=== PATIENT | female | born 1990 | race African-American/Black ===

== ENCOUNTER → 2022-12-10 14:46 | Outpatient (CLI) | payer OTHER, SELFPAY ==
--- NOTE | 2022-12-10 14:53 | DI.US.S_ITS ---
PROCEDURE: US OB <= 14 WEEKS FETUS INDICATIONS: dating and viability OUTSIDE/PRIOR DATING DATA: Last menstrual period (LMP): 07/17/2023. LMP-based estimated date of delivery (CAROLYN): 07/17/2023. First dating scan (date and location): 12/10/2022 at . Estimated date of delivery (CAROLYN) from first dating scan: 06/25/2023. TECHNIQUE: Real-time scanning was performed of the fetus and maternal pelvic organs, with image documentation. Endovaginal scanning was also performed to better visualize the fetus and maternal ovaries. COMPARISON: None. FINDINGS: Embryo: There is a single living IUP. The estimated gestational age is 11 weeks 6 days based on the current ultrasound. Heart rate: 178 Maternal organs: There are multiple uterine fibroids. The largest fibroid is in the lower uterine segment on the left measuring 4.4 x 6.4 x 5.6 cm. Right ovary is not visualized. There is a corpus luteum in left ovary. IMPRESSION: 1. A single living intrauterine gestation with an estimated gestational age of 11 weeks 6 days corresponding to ultrasound CAROLYN 06/25/2023. 2. Multiple uterine fibroids with the largest measuring 4.4 x 6.5 x 5.6 cm in the lower uterine segment on the left. We strive to produce accurate, complete, and clear reports of imaging services. To assist us in improving patient care, this report was composed using standard report templates and voice recognition software. Therefore, it may contain abnormal punctuation, insertions and/or omissions. Occasional wrong-word or sound-alike substitutions may occur. Though we review the report and make efforts to correct it, we do recommend that the report be read carefully in proper context to recognize any text inaccuracies. Dictated by: Armando Camp M.D. on 12/11/2022 at 12:41 Approved by: Armando Camp M.D. on 12/11/2022 at 12:54
[2022-12-10 15:29] LABS: Add Manual Diff / Slide Review NO; Basophils Absolute Auto 0 /uL (0-100); Basophils Percent Auto 0.3 % (0-2); Eosinophils Absolute Auto 100 /uL (0-450); Eosinophils Percent Auto 0.9 % (2-4); Hematocrit 32.6 % (36-46); Hemoglobin 11.1 g/dL (12.0-16.0); Lymphocytes Absolute Auto 1600 /uL (1100-4500); Mean Corpuscular HGB Conc 34.1 % (30-36); Mean Corpuscular Hemoglobin 30.7 PG (26-34); Mean Corpuscular Volume 89.9 fL (80-100); Monocytes Absolute Auto 600 /uL (0-900); Monocytes Percent Auto 9.7 % (3-14); Neutrophils Absolute Auto 4200 /uL (1500-7000); Neutrophils Percent Auto 64.1 % (50-75); Platelet Count 175 X10^3/uL (150-400); Red Blood Cell Count 3.63 X10^6/uL (4.0-5.2); Red Cell Distribution Width 12.8 % (11.6-14.8); White Blood Cell Count 6.5 X10^3/uL (4.5-11.0)
[2022-12-10 16:36] LABS: Hepatitis B Surface Antigen NEGATIVE s/c (NEGATIVE); Rubella Antibody IgG 64.3 IU/mL (>15)
[2022-12-10 16:42] LABS: HIV 1 & 2 Ab/Ag 4th Gen Combo NEGATIVE (NEGATIVE); Hep C Virus Ab w/Reflex Quant NEGATIVE s/c (NEGATIVE)
[2022-12-11 11:19] LABS: Varicella IgG Antibody 150 index (Immune >165)
[2022-12-14 17:06] LABS: RPR Screen Non Reactive (Non Reactive)
== END ==
PROVIDERS: Referring Provider Obstetrics & Gynecology; Visit Provider Obstetrics & Gynecology
DX: O34.11 Maternal care for benign tumor of corpus uteri, first trimester (principal); D25.9 Leiomyoma of uterus, unspecified
CPT/HCPCS: 36415; 76801; 76830; 80055; 86787; 86803; 86850; 86900; 86901; 87086; 87389

== ENCOUNTER → 2023-01-06 14:55 | Outpatient (CLI) | payer OTHER, SELFPAY ==
--- NOTE | 2023-01-06 14:58 | DI.MRI.S_ITS ---
PROCEDURE: MR PELVIS WO CON INDICATIONS: w/ multiple fibroids, right sided pelvic pain TECHNIQUE: Noncontrast coronal, axial, and sagittal HASTE, axial HASTE with fat saturation, axial 2-D FLASH in- and [id number], axial 2-D time of flight, axial diffusion and ADC from the kidneys to the symphysis. COMPARISON: [facility], US, US OB <= 14 WEEKS FETUS, 12/10/2022, 15:50. FINDINGS: Image quality: Excellent. Bowel: Trace free fluid in the pelvis is felt to be physiologic. Visualized small and large bowel loops are normal in caliber. No asymmetric soft tissue edema in the right lower quadrant to suggest acute appendicitis. The appendix is visualized in the right lower quadrant and not dilated, (6/4). Genitourinary system: Kidneys are normal in size. Bladder wall thickness is normal. Fetus: A single fetus is noted in transverse position presentation. Right inferior lateral placenta. Amniotic fluid is subjectively normal. Uterus measures 17.3 cm in length. Multiple uterine fibroids. For example: -Mid left intramural 6.2 x 5.8 x 4.9 cm, (3/23). -Left lower uterine segment intramural 4.7 x 4.5 x 3.6 cm, (3/33). -Mid midline intramural 3.5 x 3.5 x 2.8 cm, (3/30). -Left fundal subserosal 2.8 x 2.5 x 1.7 cm, (3/21). Soft tissues: No ventral or inguinal hernias. Left ovarian cyst measuring 3.6 cm. Bones: Marrow has normal overall signal. IMPRESSION: 1. No acute inflammatory process is identified. The appendix is not dilated. No significant free fluid. 2. Left ovarian cyst measuring 3.6 cm. 3. Gravid uterus. Multiple uterine fibroids. Largest measuring 6.2 cm. Dictated by: Gideon Vigil M.D. on 01/06/2023 at 17:56 Approved by: Gideon Vigil M.D. on 01/06/2023 at 18:07
== END ==
PROVIDERS: Referring Provider Obstetrics & Gynecology; Visit Provider Obstetrics & Gynecology
DX: O34.10 Maternal care for benign tumor of corpus uteri, unspecified trimester (principal); D25.1 Intramural leiomyoma of uterus; D25.2 Subserosal leiomyoma of uterus; O26.899 Other specified pregnancy related conditions, unspecified trimester; R10.2 Pelvic and perineal pain; O34.80 Maternal care for other abnormalities of pelvic organs, unspecified trimester; N83.202 Unspecified ovarian cyst, left side
CPT/HCPCS: 72195

== ENCOUNTER → 2023-01-21 10:09 | Outpatient (CLI) | payer OTHER, SELFPAY ==
[2023-01-23 21:06] LABS: AFP, Serum 48.9 ng/mL (.); Estriol, Free 0.86 ng/mL (.); Inhibin A, Dimeric 224.33 pg/mL (.); Inhibin A, MoM 1.79 (.); Maternal Ethnicity Black (.); Maternal Weight 207 lbs (.); Number of Fetuses No (.); OSBR Risk 1 IN 8798 (.); Results Report (.); Test Results *Screen Negative* (.); hCG, MoM 0.58 (.); hCG, Serum 15445 mIU/mL (.)
== END ==
PROVIDERS: Referring Provider Obstetrics & Gynecology; Visit Provider Obstetrics & Gynecology
DX: Z34.02 Encounter for supervision of normal first pregnancy, second trimester (principal); Z3A.17 17 weeks gestation of pregnancy
CPT/HCPCS: 36415; 82105; 82677; 84702; 86336

== ENCOUNTER → 2023-02-11 12:39 | Outpatient (CLI) | payer OTHER, SELFPAY ==
--- NOTE | 2023-02-11 12:40 | DI.US.S_ITS ---
PROCEDURE: US OB >= 14 WEEKS FETUS INDICATIONS: 20 week anatomy scan OUTSIDE/PRIOR DATING DATA: Last menstrual period (LMP): 09/22/2022. LMP-based estimated date of delivery (CAROLYN): 06/29/2023. First dating scan (date and location): 12/10/2022. Estimated date of delivery (CAROLYN) from first dating scan: 06/25/2023. The calculations are made using the working CAROLYN of 06/29/2023. TECHNIQUE: Real-time scanning was performed of the fetus, with image documentation and biometric measurements. Endovaginal scanning: Not performed COMPARISON: [facility], , OB <= 14 WEEKS FETUS, 12/10/2022, 15:50. 12/10/2022. FINDINGS: General: A single living intrauterine gestation is present. Presentation: Breech. Placenta: Placental position is posterior , with marginal previa. The placental edge may minimally cover the cervical os. Amniotic fluid index: 20.9 cm, normal range is 5-24 cm. Single deepest vertical pocket is 7.7 cm. heart rate: 140 beats per minute. Maternal cervical canal: 4.9 cm long. Normal lower limit is 2.5 cm. biometrics: Biparietal diameter: 5.0 cm, 21 weeks 0 days Head circumference: 17.9 cm, 20 weeks 3 days Abdominal circumference: 14.6 cm, 20 weeks 0 days Femur length: 3.3 cm, 20 weeks 3 days Clinically estimated gestational age: 20 weeks 2 days Composite gestational age from present scan: 20 weeks 3 days Estimated weight and percentile: 339 g, 41st percentile Anatomic survey: Neuro: Ventricles are non-dilated at less than 10 mm. Cisterna magna is normal at 3-11 mm. Cerebellum is normal in size and morphology. Nuchal skin fold: Normal at less than 6 mm between 14-21 weeks gestational age. Face: Nose and lips, facial profile are normal. Spine: No evidence for spina bifida. Heart: 4-chambered heart is present, with normal ventricular outflow tracts. Diaphragm: Diaphragm is intact. Stomach: Left-sided stomach is present. Kidneys: No hydronephrosis. Normal is less than 5 mm in 2nd trimester, less than 7 mm in 3rd trimester. Cord: 3-vessel cord has orthotopic insertion. Bladder: Normal in size. Extremities: All 4 extremities identified. Again noted is a fibroid uterus. The largest uterine fibroid is 10.7 x 6.8 x 8.6 cm. This may be an over measurement. The largest measurement may only be 7.3 cm. Previously the largest measured uterine fibroid was 4.4 x 6.4 x 5.6 cm. IMPRESSION: 1. Living 2nd trimester intrauterine with no sonographic evidence of complications. Today's ultrasound age is 1 day greater than clinical age based on LMP. 2. Normal anatomy study. 3. Marginal placental previa. It is possible that the edge of the placenta minimally covers the cervical os. 4. Fibroid uterus, with probable interval growth of largest uterine fibroid. Comment: Recommend follow-up ultrasound in approximately 4 weeks to re-evaluate the presence or absence of placenta previa. We strive to produce accurate, complete, and clear reports of imaging services. To assist us in improving patient care, this report was composed using standard report templates and voice recognition software. Therefore, it may contain abnormal punctuation, insertions and/or omissions. Occasional wrong-word or sound-alike substitutions may occur. Though we review the report and make efforts to correct it, we do recommend that the report be read carefully in proper context to recognize any text inaccuracies. Dictated by: Richmond Rodgers M.D. on 02/11/2023 at 15:30 Approved by: Richmond Rodgers M.D. on 02/11/2023 at 15:39
== END ==
PROVIDERS: Referring Provider Obstetrics & Gynecology; Visit Provider Obstetrics & Gynecology
DX: O44.22 Partial placenta previa NOS or without hemorrhage, second trimester (principal); O34.12 Maternal care for benign tumor of corpus uteri, second trimester; D25.9 Leiomyoma of uterus, unspecified; Z3A.20 20 weeks gestation of pregnancy
CPT/HCPCS: 76811

== ENCOUNTER → 2023-04-02 12:52 | Outpatient (CLI) | payer OTHER, SELFPAY ==
[2023-04-02 14:51] LABS: Hematocrit 28.4 % (36-46); Hemoglobin 9.7 g/dL (12.0-16.0)
[2023-04-02 15:17] LABS: GTT (PREG) 1 Hour PP 50gm Dose 91 mg/dL (76-139)
== END ==
PROVIDERS: Referring Provider Obstetrics & Gynecology; Visit Provider Obstetrics & Gynecology
DX: Z34.02 Encounter for supervision of normal first pregnancy, second trimester (principal); Z3A.26 26 weeks gestation of pregnancy
CPT/HCPCS: 36415; 82950; 85014; 85018

== ENCOUNTER 2023-04-14 23:46 | Observation (INO) | payer OTHER, SELFPAY ==
--- NOTE | 2023-04-14 23:56 | DI.US.S_ITS ---
PROCEDURE: US OB LIMITED INDICATIONS: FIBROID PAIN RADIATING TO RIGHT THIGH OUTSIDE/PRIOR DATING DATA: Last menstrual period (LMP): 09/22/2022. LMP-based estimated date of delivery (CAROLYN): 06/29/2023. First dating scan (date and location): 12/10/2022. Estimated date of delivery (CAROLYN) from first dating scan: 06/25/2023. TECHNIQUE: Real-time scanning was performed of the fetus, with image documentation. Endovaginal scanning: performed COMPARISON: [facility], OB >= 14 WEEKS FETUS, 02/11/2023, 12:57. FINDINGS: A single living intrauterine gestation is present. Presentation: Breech. Placenta: Placental position is posterior. The placenta appears to cover the internal os of the cervix Amniotic fluid index: Not measured Single deepest vertical pocket is not measured heart rate: 137 beats per minute. Maternal cervical canal: 3.4 cm long. Normal lower limit is 2.5 cm. estimated gestational age: 29 weeks 2 days Multiple maternal uterine fibroids present largest measures 9.9 x 7.1 x 7.4 cm. IMPRESSION: 1. Single living intrauterine in breech presentation. 2. Posterior placenta, appearance of complete placenta previa. Follow-up recommended. 3. Maternal uterine fibroids present largest measuring 9.9 cm. Dictated by: Cole Smith M.D. on 04/15/2023 at 1:15 Approved by: Cole Smith M.D. on 04/15/2023 at 1:18
[2023-04-15] MEDS: OXYCODONE IR 5 MG TABLET PO (01:29)
--- NOTE | 2023-04-15 17:46 | PM.OBTRLD ---
Visit Information Visit Information Date of evaluation: 04/14/23 Primary OB Provider: Vishal William On-call OB Provider: Phillip Cruz Reason for Evaluation: Yes other Comments/Additional reasons for admission: Pelvic pain radiating down right leg Vital Signs Vital Signs: T: 37.2? C BP: 122/71 P: 71 bpm O2: 99% [facility] Medical History (Updated 04/15/23 @ 17:48 by Phillip Cruz MD) Anemia Surgical History (Updated 01/05/23 @ 20:20 by Prema Sarabia) Anesthesia [place] teeth extracted (~2019) Family History (Updated 12/07/22 @ 13:38 by Georgina Ricci RN) Mother Hypertension Sister Hypertension Social History marital status: unmarried,single number of children: 0 lives independently: Yes caregiver/support person: Yes housing: apartment pets and animals: No education level: college (bachelor's degree, starting grad school soon for accounting) occupational status: employed (active duty) current occupational exposures/hazards: No special ramses needs: No travel history: over 6 months ago seatbelt use: always water heater temp set < 120 deg: Yes working smoke detector in home: Yes fire extinguisher in home: Yes carbon monox detector in home: Yes firearms in home: No do you feel safe at home: Yes Smoking Status: Never smoker second hand exposure: No alcohol intake: never substance use type: does not use during the past year weight has: remained stable daily servings fruits/ve-4 caffeine: No Type(s) of exercise: walking frequency: daily Evaluation Evaluation Baseline heart rate: 125 Variability: Average (6-10) monitor accelerations: Present Monitor Decelerations: Absent Category of Tracing: Appropriate for gestational age Status: Category l Diagnosis, Plan/Disposition Final Diagnosis (1) Pelvic pain affecting : Status: Acute (2) Uterine fibroids affecting : Status: Acute (3) Placenta previa: Status: Acute Plan/Disposition Plan: heart tracing appropriate for gestational age without any evidence of distress, no contractions on toco indicative of labor. Ultrasound remarkable for placenta previa, no bleeding or evidence of abruption that would require continued monitoring. Pain is consistent with what she is experienced throughout this related to her uterine fibroids that are possibly devolving. Recommend taking the medication prescribed by her primary OB. OB Disposition: home
== END 2023-04-15 02:00 | disposition home or self-care (01) ==
PROVIDERS: Admitting Provider Family Medicine; PCP Nurse Practitioner Family; Referring Provider Family Medicine; Visit Provider Family Medicine
DX: O34.13 Maternal care for benign tumor of corpus uteri, third trimester (principal); D25.9 Leiomyoma of uterus, unspecified; O44.03 Complete placenta previa NOS or without hemorrhage, third trimester; Z3A.29 29 weeks gestation of pregnancy
CPT/HCPCS: 59025; 76815; G0378; G0379

== ENCOUNTER → 2023-05-19 15:18 | Outpatient (CLI) | payer OTHER, SELFPAY ==
[2023-05-19 15:51] LABS: Hematocrit 31.6 % (36-46); Hemoglobin 10.7 g/dL (12.0-16.0)
[2023-05-19 16:03] LABS: HEMOLYSIS < 15 (0-50); Iron 101 ug/dL (37-170)
[2023-05-19 16:13] LABS: Percent Iron Saturation 25 % (15-50); Total Iron Binding Capacity 398 ug/dL (265-497); Transferrin 345 mg/dL (206-381)
== END ==
PROVIDERS: PCP Nurse Practitioner Family; Referring Provider Obstetrics & Gynecology; Visit Provider Obstetrics & Gynecology
DX: O99.019 Anemia complicating pregnancy, unspecified trimester (principal)
CPT/HCPCS: 36415; 83540; 83550; 85014; 85018

== ENCOUNTER → 2023-05-25 15:12 | Outpatient (CLI) | payer OTHER, SELFPAY ==
--- NOTE | 2023-05-25 15:12 | DI.US.S_ITS ---
PROCEDURE: US OB FOLLOW UP INDICATIONS: FOLLOW-UP PREVIA OUTSIDE/PRIOR DATING DATA: Last menstrual period (LMP): 09/22/2022. LMP-based estimated date of delivery (CAROLYN): 06/29/2023. First dating scan (date and location): 12/10/2022 at . Estimated date of delivery (CAROLYN) from first dating scan: 06/25/2023. The calculations are made using the working CAROLYN of 06/29/2023. TECHNIQUE: Real-time scanning was performed of the fetus, with image documentation and biometric measurements. COMPARISON: [facility], OB LIMITED, 04/15/2023, 0:40. [facility], OB >= 14 WEEKS FETUS, 02/11/2023, 12:57. FINDINGS: General: A single living intrauterine gestation is present. Presentation: Breech. Placenta: Placental position is posterior , with complete previa. Amniotic fluid index: 14.7 cm, normal range is 5-24 cm. Single deepest vertical pocket is 4.9 cm. heart rate: 144 beats per minute. Maternal cervical canal: Not visualized. biometrics: Not performed Clinically estimated gestational age: 35 weeks 0 day. Other: Not applicable. IMPRESSION: 1. A single living intrauterine gestation redemonstrated. 2. Persistent placenta previa. We strive to produce accurate, complete, and clear reports of imaging services. To assist us in improving patient care, this report was composed using standard report templates and voice recognition software. Therefore, it may contain abnormal punctuation, insertions and/or omissions. Occasional wrong-word or sound-alike substitutions may occur. Though we review the report and make efforts to correct it, we do recommend that the report be read carefully in proper context to recognize any text inaccuracies. Dictated by: Armando Camp M.D. on 05/25/2023 at 19:24 Approved by: Armando Camp M.D. on 05/25/2023 at 19:27
== END ==
PROVIDERS: PCP Nurse Practitioner Family; Referring Provider Obstetrics & Gynecology; Visit Provider Obstetrics & Gynecology
DX: O44.00 Complete placenta previa NOS or without hemorrhage, unspecified trimester (principal)
CPT/HCPCS: 76816

== ENCOUNTER → 2023-06-02 11:23 | Outpatient (CLI) | payer OTHER, SELFPAY ==
[2023-06-03 14:53] LABS: Strep Grp B PCR NEG for Grp B Strep
== END ==
PROVIDERS: PCP Nurse Practitioner Family; Visit Provider Obstetrics & Gynecology
DX: Z34.03 Encounter for supervision of normal first pregnancy, third trimester (principal); Z3A.36 36 weeks gestation of pregnancy
CPT/HCPCS: 87653

== ENCOUNTER 2023-06-16 06:59 | Inpatient (IN) | payer OTHER, SELFPAY ==
[2023-06-16 08:05] LABS: Add Manual Diff / Slide Review NO; Basophils Absolute Auto 0 /uL (0-100); Basophils Percent Auto 0.7 % (0-2); Eosinophils Absolute Auto 0 /uL (0-450); Eosinophils Percent Auto 0.2 % (2-4); Hematocrit 31.8 % (36-46); Hemoglobin 10.7 g/dL (12.0-16.0); Lymphocytes Absolute Auto 1200 /uL (1100-4500); Lymphocytes Percent Auto 21.8 % (25-40); Mean Corpuscular HGB Conc 33.7 % (30-36); Mean Corpuscular Hemoglobin 31.1 PG (26-34); Mean Corpuscular Volume 92.1 fL (80-100); Monocytes Absolute Auto 400 /uL (0-900); Monocytes Percent Auto 6.8 % (3-14); Neutrophils Absolute Auto 3800 /uL (1500-7000); Neutrophils Percent Auto 70.5 % (50-75); Platelet Count 160 X10^3/uL (150-400); Red Blood Cell Count 3.46 X10^6/uL (4.0-5.2); White Blood Cell Count 5.4 X10^3/uL (4.5-11.0)
[2023-06-16] MEDS: LACTATED RINGERS 1,000 ML 999 ML IV ×3 (08:09→11:00)
[2023-06-16] MEDS: CITRIC ACID/SODIUM CITRATE 15 ML SOLUTION 30 ML PO (08:10)
--- NOTE | 2023-06-16 08:45 | SUR.OPER ---
Supine on Padded OR bed, head on pillow, safety belt at thigh, arms secured on padded arm boards at <90 degrees abduction. Bump under right buttock. Legs uncrossed with pillow under knees, gel pad to heels, tape over blanket to lower legs.
--- NOTE | 2023-06-16 08:48 | P.HPOB_ITS ---
OB HPI Date/Time Date of admission: 06/16/23 Date Patient Seen: 06/16/23 Time Patient Seen: 08:51 History of Present Condition Chief complaint: IUP, 38+1 wks EGA, placenta previa, anemia : 1 Para: 0 Estimated Date of Delivery: 06/29/23 Estimated Gestational Age (weeks): 38+1 Narrative: Loren Morris is a 33 year old primigravida admitted now at 38+ 1 for primary section due to the presence of a complete placenta previa. Patient has not experienced any vaginal bleeding during the course of the but ultrasounds as recently as 05/25/2023 demonstrate a posterior placenta with complete previa. course has been largely uneventful with solid early dating and appropriate milestones throughout. Patient is mildly anemic and has borderline platelets at 160. GBS status is negative. Indications Operative indications ( section): placenta previa History of Present care: good care Dating criteria: LMP confirmed by 1st trimester US Ultrasounds: normal 1st trimester US, normal mid trimester US and abnormal US findings (Placenta previa) Obstetrical complications: none Medical complications: none Preadmission Labs Blood type: A (+) positive -: Antibody screen: negative, GBS status: negative, HBsAG: negative, HIV: negative and RPR/VDLR: negative -: Chlamydia screen: not detected and Gonorrhea screen: not detected -: Rubella: immune and Varicella: not immune HCT: 31.8 HCAB: negative PAP: Normal Quad screen: Normal 1 hr GTT: 91 Prior (ies) History: Primigravida Evaluation Evaluation Baseline heart rate: 130 Variability: Moderate (11-25) monitor accelerations: Present Monitor Decelerations: Absent Category of Tracing: Reactive Status: Category l station: -4 [facility] Medical History (Updated 06/10/23 @ 17:12 by Vishal William MD) Anemia Surgical History (Updated 01/05/23 @ 20:20 by Prema Sarabia) Anesthesia [place] teeth extracted (~2019) Family History (Updated 12/07/22 @ 13:38 by Georgina Ricci RN) Mother Hypertension Sister Hypertension Social History marital status: unmarried,single number of children: 0 lives independently: Yes caregiver/support person: Yes housing: apartment pets and animals: No education level: college (bachelor's degree, starting grad school soon for accounting) occupational status: employed (active duty) current occupational exposures/hazards: No special ramses needs: No travel history: over 6 months ago seatbelt use: always water heater temp set < 120 deg: Yes working smoke detector in home: Yes fire extinguisher in home: Yes carbon monox detector in home: Yes firearms in home: No do you feel safe at home: Yes Smoking Status: Never smoker second hand exposure: No alcohol intake: never substance use type: does not use during the past year weight has: remained stable daily servings fruits/ve-4 caffeine: No Type(s) of exercise: walking frequency: daily Meds Home Medications and Allergies Home Medications Medication Instructions Recorded Confirmed Type oxycodone 5 mg tablet 5 mg PO Q6H PRN pain #20 tabs 12/18/22 06/16/23 Rx sumatriptan succinate 50 mg tablet See Rx Instructions PO .COMPLEX 01/08/23 06/16/23 Rx (Imitrex) #20 tabs vitamins no.163-iron 1 tab PO DAILY #90 tabs 03/05/23 06/16/23 Rx bis-gly 20 mg-folate no.10 1 mg tablet Allergies Allergy/AdvReac Type Severity Reaction Status Date / Time No Known Drug Allergies Allergy Verified 06/16/23 09:00 Review of Systems Review of Systems Narrative: Problem-specific ROS positives included in HPI OB Exam Vital signs Blood Pressure: 126/71 Pulse Rate: 82 HENMT Head: normal to inspection, normocephalic and atraumatic Eyes General: appearance normal, both eyes and all related structures Resp Effort & Inspection: normal respiratory effort and able to speak in complete sentences Auscultation: clear to auscultation bilaterally Cardio Rate: regular rate Rhythm: regular rhythm Heart Sounds: S1 normal, S2 normal and no murmurs Extremities Lower extremity: Yes normal to inspection GI Inspection: normal to inspection Palpation: Yes soft and Yes no hepatosplenomegaly Uterus Location (Fundal Height): 38 Presentation: phuong breech Estimated Weight (lbs): 8 Objective Labs 06/16/23 07:40 Labs: Laboratory Results - last 24 hr 06/16/23 07:40 WBC 5.4 RBC 3.46 L Hgb 10.7 L Hct 31.8 L MCV 92.1 MCH 31.1 MCHC 33.7 RDW 14.0 Plt Count 160 Neut % (Auto) 70.5 Lymph % (Auto) 21.8 L [place] % (Auto) 6.8 Eos % (Auto) 0.2 L Baso % (Auto) 0.7 Neut # (Auto) 3800 Lymph # (Auto) 1200 [place] # (Auto) 400 Eos # (Auto) 0 Baso # (Auto) 0 Blood Type A Positive Antibody Screen Negative Crossmatch See Detail Assessment and Plan Assessment and Plan Assessment and Plan narrative: ASSESSMENT 1. Intrauterine , Xavier, 38+ 1 weeks gestational age 2. Breech presentation 3. Complete placenta previa 4. Anemia 5. Uterine fibroids PLAN 1. Admit for primary section 2. See admission orders 3. Patient counseled regarding alternatives, risks, benefits, and potential complications associated with primary section. Patient is also aware that placenta previa carries with it a risk of hemorrhage and if hemorrhage can not be controlled any other way, hysterectomy may be necessary as a life-saving measure. With full understanding of the above, a written consent was executed, signed, and witnessed this date.
[2023-06-16 08:56] VITALS: BP 126/71
[2023-06-16 09:05] VITALS: BP 126/71; PULSE 82
--- NOTE | 2023-06-16 09:05 | PM.PREOP ---
Pre-operative Note COVID-19 COVID-19 status: Not tested Interval Note History & Physical reviewed/Exam performed by Physician: Yes Changes to H&P: No
[2023-06-16] MEDS: CEFAZOLIN 2 GM/100 ML PREMIX 100 ML IV (09:42)
--- NOTE | 2023-06-16 10:09 | SUR.OPER ---
Viable male delivered via section at 10:09. Cord blood x2 and placenta sent with L&D RN.
--- NOTE | 2023-06-16 10:18 | PM.AN.REGBLK ---
Regional Block Pre-procedure Attending OB provider: Vishal William PMH/ROS narrative: 33yo at 38w1d for primary C/S due to placenta previa. See pre-anesthesia assessment for details. ASA Class: II Labs: Hct 31.8 % (36-46) L 06/16/23 07:40 Plt Count 160 X10^3/uL (150-400) 06/16/23 07:40 Medications: Current Medications Generic Name Dose Route Start Last Admin Trade Name Freq PRN Reason Stop Dose Admin Oxytocin/Lactated Ringer's 30 unit in 500 mls @ 200 mls/hr 06/15/23 17:37 Oxytocin Premix IV CONT PRN Bleeding Protocol Lactated Ringer's 1,000 mls @ 42 mls/hr 06/15/23 21:00 Lactated Ringers IV CONT HANK Meperidine HCl 25 mg 06/16/23 10:05 Meperidine 50 Mg/Ml Inj IV PACUNOW PRN Moderate pain or shivering Metoclopramide HCl 10 mg 06/16/23 10:05 Metoclopramide 10 Mg/2 Ml Inj IV NOW PRN Nausea And Vomiting Ondansetron HCl 4 mg 06/16/23 10:05 Ondansetron 4 Mg/2 Ml Inj IV NOW PRN Nausea And Vomiting Oxycodone HCl 5 mg 06/16/23 10:05 Oxycodone Ir 5 Mg Tablet PO PACUNOW PRN Mild or moderate pain Oxytocin 10 unit 06/15/23 17:37 Oxytocin 10 Unit/Ml Vial IM NOW PRN Bleeding Allergies: Allergies Allergy/AdvReac Type Severity Reaction Status Date / Time No Known Drug Allergies Allergy Verified 06/16/23 09:00 Procedure Insertion date: 06/16/23 Insertion time: :34 Prep/Local: 1% lidocaine (Chloraprep) Interspace: L4-5 Patient position: sitting Insertion: Yes CSF Initial Medications BOLUS DOSE time: :34 BOLUS DOSE med: other (Spinal - 0.75% bupivacaine 1.7 ml, 25 mcg fentanyl, 0.25 mg Duramorph) Post-procedure Anesthesia time START: 09:26 Anesthesia time END: 11:28 Post-procedure Anesthesia Assessment: Yes CV function: HR/BP stable, Yes Resp function: RR/sat/airway adequate, Yes Post-op hydration adequate, Yes Pain control adequate, Yes Nausea & vomiting absent, Yes Temperature > 36 C and Yes Mental status appropriate
[2023-06-16] MEDS: ACETAMINOPHEN IV 1,000 MG/100 ML VIAL 400 MG IV (11:00)
[2023-06-16] MEDS: miSOPROStoL 200 MCG TABLET 800 MCG PR (11:20)
[2023-06-16 11:24] VITALS: BP 112/59; PULSE 62; RESP 30; TEMP 36.2; O2SAT 100
[2023-06-16 11:29] VITALS: BP 113/56; PULSE 63; RESP 14; O2SAT 100
[2023-06-16 11:34] VITALS: BP 123/65; PULSE 59; RESP 14; O2SAT 99
[2023-06-16 11:39] VITALS: BP 120/58; PULSE 59; RESP 14; O2SAT 100
[2023-06-16] MEDS: ONDANSETRON 4 MG/2 ML INJ IV (12:29)
--- NOTE | 2023-06-16 12:40 | P.OP_ITS ---
Operative Date/Time/Diagnoses Date of procedure: 06/16/23 Time of procedure: 09:45 Pre-op diagnosis: Intrauterine gestation, gao, 38+1 weeks EGA Breech presentation Complete placenta previa Uterine fibroids Post-op diagnosis: same Procedure & Clinicians Procedure: Primary section, low vertical uterine incision Same procedure as scheduled: Yes Indications: Loren Morris is a 33 year old primigravida admitted now at 38+ 1 for primary section due to the presence of a complete placenta previa. Patient has not experienced any vaginal bleeding during the course of the but ultrasounds as recently as 05/25/2023 demonstrate a posterior placenta with complete previa. course has been largely uneventful with solid early dating and appropriate milestones throughout. Patient is mildly anemic and has borderline platelets at 160. GBS status is negative. Surgeon: Vishal William Metal Sheet Roller Operator: Etta Song Reason for Metal Sheet Roller Operator: Metal Sheet Roller Operator required for the safe, effective, and timely completion of this surgery. Anesthesia Type: Spinal Operative Notes Findings: Viable male BW 3055 gms. (6 lbs. 11.8 oz.), Apgars 5/6/9, delivered from an unstable lie via breech extraction. Normal gravid anatomy. Closure Type: primary Specimen(s): cord blood Intraoperative meds administered: Ketorolac and Pitocin Applied: Catheter Estimated Blood Loss (mL): 1,500 Blood products transfused: none Procedure in detail: With her informed written consent, the patient was taken to the operating room and placed in the supine position for a primary section procedure, for the indication(s) above. The abdomen was prepped and draped in the usual manner for section and a pre-surgical timeout was taken per [facility] OR protocol. Once effective anesthesia was confirmed, a 15 cm transverse Pfannenstiel incision was made in the skin and taken down through the subcutaneous tissues to the deep fascia. The deep fascia was incised transversely, the rectus abdominal eyes bluntly and sharply, and the peritoneal cavity entered without difficulty. The lower uterine segment was visualized, the position/presentation palpated, and location of the placenta ascertained. Because of large venous sinuses involving the CATIE, especially on the right, as well as locations of the intramural myomas, the decision was made to perform a low vertical uterine incision rather than LTC. The uterine incision was extended cephalad with bandage scissors, carefully avoiding potential injury. Amniotomy revealed clear fluid but venous sinuses resulted in significant initial blood loss. The presenting part was the right arm but the vertex could not be brought down to the hysterotomy site. Instead, the infant was manipulated to double footling presentation and breech extraction performed. Cord etanglement was significant with a tight nuchal cord noted upon delivery of the aftercoming head. Once the vertex was delivered, tight entanglement of the cord prevented reduction therefore the umbilical cord was immediately doubly clamped and cut. A segment of cord was obtained for cord blood gases. The was vigorous and he was passed to attending nursery staff and respiratory therapy for evaluation. The placenta was delivered intact using gentle cord traction and fundal massage.The uterine cavity was then cleared of any clot/debris first with a sloppy wet lap tape followed by a dry lap tape. A Ring forcep was then passed downward through the cervical os which was then dilated. The vertical uterine incision was then closed 1st with 2 layers of 1. Chromic catgut suture using running interlocking stitches. A 3rd layer of 0 Monocryl maozoz-ug-bmudml was used to bring the incision together near the serosa Mary 4th layer of 0 Monocryl running interlocking suture was used to bring the serosal surfaces together. Three additional 0 Monocryl [id number]-[id number] stitches were required to achieve complete hemostasis of the hysterotomy. Once pelvic hemostasis was assured, the anterior peritoneum was closed with a running 2-0 Vicryl suture and the fascia closed with #1 Vicryl in a running stitch initiated at both angles and tying separately near the midline. The subcutaneous tissues were reapproximated with 2-0 plain catgut suture using inverted interrupted stitches. The skin edges were then brought together with 4-0 Monocryl in a subcuticular closure and the incision was reinforced with 1 Steri-Strips. An appropriate compression dressing was applied and the patient transferred to PACU for recovery and subsequent transfer to the Center for recuperation. Complications: none Baby 1: Infant Gender: Male Presentation: breech Placental Delivery Description: Spontaneous and Expressed Cord Vessel Description: 3 Vessels, Nuchal Cord and Around Body x1 score (1 min): 5 score (5 min): 6 score (10 min): 9 weight: 6 lb 11.762 oz Narrative: Patient received IV Pitocin, IM Methergine, IV TXA, and Cytotec p.r. intra op following delivery of the placenta Post-operative Condition: stable Disposition: PACU Aftercare: routine postop
[2023-06-16] MEDS: LACTATED RINGERS 1,000 ML 100 ML IV ×2 (13:30→20:15)
[2023-06-16] MEDS: KETOROLAC 30 MG/ML VIAL IV ×2 (14:03→20:15)
[2023-06-16 16:11] LABS: Hematocrit 28.1 % (36-46); Hemoglobin 9.4 g/dL (12.0-16.0)
[2023-06-16] MEDS: DOCUSATE 100 MG CAPSULE PO (20:18)
[2023-06-17 02:35] VITALS: TEMP 37.1
[2023-06-17] MEDS: KETOROLAC 30 MG/ML VIAL IV ×2 (02:35→08:06)
[2023-06-17] MEDS: OXYCODONE IR 10 MG TABLET PO ×4 (05:38→21:10)
[2023-06-17 06:27] LABS: Add Manual Diff / Slide Review NO; Basophils Absolute Auto 0 /uL (0-100); Basophils Percent Auto 0.1 % (0-2); Eosinophils Absolute Auto 0 /uL (0-450); Eosinophils Percent Auto 0.1 % (2-4); Hematocrit 21.7 % (36-46); Hemoglobin 7.3 g/dL (12.0-16.0); Lymphocytes Absolute Auto 900 /uL (1100-4500); Lymphocytes Percent Auto 7.3 % (25-40); Mean Corpuscular HGB Conc 33.4 % (30-36); Mean Corpuscular Hemoglobin 30.7 PG (26-34); Monocytes Absolute Auto 900 /uL (0-900); Monocytes Percent Auto 6.6 % (3-14); Neutrophils Absolute Auto 11100 /uL (1500-7000); Neutrophils Percent Auto 85.9 % (50-75); Platelet Count 145 X10^3/uL (150-400); Red Blood Cell Count 2.36 X10^6/uL (4.0-5.2); Red Cell Distribution Width 13.6 % (11.6-14.8)
[2023-06-17] MEDS: DOCUSATE 100 MG CAPSULE PO ×2 (08:29→21:12)
--- NOTE | 2023-06-17 09:37 | PM.OBPN.1 ---
Subjective - OB Subjective Patient comments: no complaints, pain well controlled, incisional pain and tolerating diet [place] baby status: doing well and nursing well feeding status: exclusively breast feeding Narrative: Patient is doing well status post primary section. She is having minimal bleeding and her pain is reasonably well controlled. H&H are significantly lower this morning and post which is not surprising. That said, the patient has relatively asymptomatic but she has not been ambulatory to any significant degree. Date Patient Seen: 06/17/23 Time Patient Seen: 09:38 Exam Vital Signs (past 8 hours): - 06/17/23 02:35 Temperature 98.8 F Oxygen Delivery Method Room Air Const General: cooperative and comfortable Nutritional Appearance: average body habitus Orientation: alert and oriented x3 HENMT Head: normal to inspection, atraumatic and abrasion Ears: hearing grossly normal bilaterally Face and sinus: face symmetric Eyes General: appearance normal, both eyes and all related structures Conjunctivae: conjunctivae normal Sclera: sclerae normal EOM: EOM intact bilaterally Neck Neck: normal visual inspection Resp Effort & Inspection: normal respiratory effort and able to speak in complete sentences Auscultation: clear to auscultation bilaterally Cardio Rate: regular rate Rhythm: regular rhythm Heart Sounds: S1 normal, S2 normal and murmur (Gr. 3/6 flow murmur) GI Inspection: normal to inspection and incision (Surgical dressing clean and dry) Palpation: soft, no hepatosplenomegaly and tender (Mild, diffuse postsurgical tenderness) Auscultation: hypoactive bowel sounds External Female Exam: other (No significant bleeding noted) Extrem General: no calf tenderness Psych Appearance: grossly normal Mental Status: mental status grossly normal Speech and Movement: speech and movement normal Mood: congruent mood Affect: normal affect Attitude: cooperative Thought Process: normal Thought Content: normal Judgment: judgment good Objective Labs 06/17/23 06:16 Labs: Laboratory Results - last 24 hr 06/16/23 06/17/23 16:04 06:16 WBC 13.0 H D RBC 2.36 L Hgb 9.4 L 7.3 L Hct 28.1 L 21.7 L MCV 92.0 MCH 30.7 MCHC 33.4 RDW 13.6 Plt Count 145 L Neut % (Auto) 85.9 H Lymph % (Auto) 7.3 L Nuckolls % (Auto) 6.6 Eos % (Auto) 0.1 L Baso % (Auto) 0.1 Neut # (Auto) 50231 H Lymph # (Auto) 900 L [place] # (Auto) 900 Eos # (Auto) 0 Baso # (Auto) 0 Assessment & Plan Assessment and Plan (1) delivery, delivered, current hospitalization: Status: Acute (2) Placenta previa: Status: Acute (3) Anemia affecting : Status: Acute (4) Uterine fibroids affecting : Status: Acute Plan day: 1 plan OB: routine postop care Comments: Will defer transfusion at this point due to the patient's asymptomatic condition but will initiate iron infusions today and again tomorrow. Progressive ambulation as tolerated. Probable discharge tomorrow Time Spent With Patient Time: Total time spent is greater than 50% in coordination of care (as documented) at patient's floor/unit and/or counseling patient: Time with patient: 15-24 minutes
[2023-06-17] MEDS: IRON SUCROSE 300 MG in SODIUM CHLORIDE 0.9% 250 ML 176.667 MG IV (10:40)
--- NOTE | 2023-06-17 12:47 | CM.SWNOTE ---
Reviewed EMR and spoke with center staff. Met with pt and her friend at bedside to introduce self and role. Pt reports that she is feeling good post-caesarian section on 06/16/23. She was nursing her baby at time of this visit, reports that baby is latching well, clinical reimbursement specialist also present in the center for ongoing support. SILK FOLDER was requested to offer OP support resources for pt if she did not already have some in place. Pt is active at [facility], she shared that the already has her set-up with f/u post support and f/u with PCP. She also has a strong, actively involved yazidism community that is assisting with support and resource needs as well. She declines the need for any further resources at this time. No further SILK FOLDER needs indicated. Will be available for further assistance if needed.
[2023-06-17] MEDS: ACETAMINOPHEN 325 MG TABLET 650 MG PO ×2 (14:57→21:11)
[2023-06-17] MEDS: IBUPROFEN 600 MG TABLET PO ×2 (14:58→21:11)
[2023-06-17] MEDS: MORPHINE 2 MG/ML INJ IV (19:51)
[2023-06-17] MEDS: LANOLIN OINT 7 GM 1 APPLIC TOP (21:12)
[2023-06-18] MEDS: MORPHINE 2 MG/ML INJ IV (00:59)
[2023-06-18] MEDS: IBUPROFEN 600 MG TABLET PO ×3 (03:19→15:27)
[2023-06-18] MEDS: ACETAMINOPHEN 325 MG TABLET 650 MG PO ×3 (03:21→15:27)
[2023-06-18] MEDS: OXYCODONE IR 10 MG TABLET PO ×2 (06:21→15:27)
[2023-06-18 06:39] LABS: Hematocrit 20.7 % (36-46); Hemoglobin 6.9 g/dL (12.0-16.0)
[2023-06-18] MEDS: DOCUSATE 100 MG CAPSULE PO (09:31)
[2023-06-18] MEDS: IRON SUCROSE 300 MG in SODIUM CHLORIDE 0.9% 250 ML 176.667 MG IV (10:28)
--- NOTE | 2023-06-18 12:19 | P.DS_ITS ---
Discharge Providers Provider Date of admission: 06/16/23 06:59 Discharge Date: 06/18/23 Primary care physician: DRE Dominguez Consults: 06/16/23 11:46 Consult to Agriscience Teacher Routine Comment: 06/16/23 14:13 Consult to Real Estate Services Administrator Routine Comment: Pt.recently .H/Osuicidal ideation summer Discharge provider: Vishal William MD Summary Hospital Course Date Patient Seen: 06/18/23 Time Patient Seen: 12:19 Diagnoses: Intrauterine gestation, Xavier, 38+ 1 weeks estimated gestational age, delivered by primary section Breech presentation Complete placenta previa Chronic anemia, aggravated by acute surgical blood loss Uterine fibroids Hospital Course: On the morning of 06/16/2023, the patient was admitted for a primary section due to breech presentation incomplete placenta previa. Full details of the procedure itself are well summarized on my operative note of that date. Estimated blood loss at the time of surgery was 1500 cc and subsequent to delivery, patient's hemoglobin and hematocrit levels ultimately fell to 6.9/20.7 on the 2nd postoperative day but the patient remained essentially asymptomatic after being chronically anemic throughout the entire . She received 2 infusions of iron sucrose, 300 mg each on days 1 and 2. Otherwise she and her baby have both done extremely well following delivery with the mother experiencing prompt return of bowel and bladder function, she is ambulating independently, tolerating regular diet, and her pain is well controlled with oral pain medications. She will be discharged at this time to home in an afebrile normotensive condition after counseling regarding precautionary symptoms, limitations of activity, medications, and plans for follow-up which will be in 1 week. Medications at discharge will include resumption of vitamins and other antepartum medications along with oxycodone 5 mg every 4-6 hours as needed for pain, dispense 20 with no refills, and ibuprofen 600 mg p.o. every 6 hours as needed for pain. Peripartum Data Delivery Method: Section Laceration Description: None Episiotomy description: None Procedures: Spinal block anesthetic Primary section, low vertical incision complications: none [place] 1: Gender: Male Disposition of : home Discharge Diagnosis (1) delivery, delivered, current hospitalization: Status: Acute (2) Placenta previa: Status: Acute (3) Anemia affecting : Status: Acute (4) Uterine fibroids affecting : Status: Acute Status at Discharge Cognitive/behavioral status at discharge: oriented Functional status at discharge: independent ambulation Overall status at discharge: patient is progressing back to baseline Time Spent with Patient Time attestation: Total time spent providing and/or coordinating discharge services: Time spent: Less than 30 minutes Objective Labs 06/18/23 06:21 Labs: Laboratory Results - last 24 hr 06/18/23 06:21 Hgb 6.9 L* Hct 20.7 L* Exam Vital Signs (past 8 hours): Oxygen Delivery Method Room Air Const General: cooperative and comfortable Nutritional Appearance: average body habitus Orientation: alert and oriented x3 HENMT Head: normal to inspection, atraumatic and abrasion Ears: hearing grossly normal bilaterally Face and sinus: face symmetric Eyes General: appearance normal, both eyes and all related structures Conjunctivae: conjunctivae normal Sclera: sclerae normal EOM: EOM intact bilaterally Neck Neck: normal visual inspection Resp Effort & Inspection: normal respiratory effort and able to speak in complete sentences Auscultation: clear to auscultation bilaterally Cardio Rate: regular rate Rhythm: regular rhythm Heart Sounds: S1 normal, S2 normal and no murmurs GI Inspection: normal to inspection and incision (Incision clean and dry, compression dressing replaced with Aquacel) Palpation: soft, no hepatosplenomegaly and tender (Mild, diffuse postsurgical tenderness) Auscultation: normal bowel sounds External Female Exam: other (No significant bleeding noted) Extrem General: no calf tenderness Psych Appearance: grossly normal Mental Status: mental status grossly normal Speech and Movement: speech and movement normal Mood: congruent mood Affect: normal affect Attitude: cooperative Thought Process: normal Thought Content: normal Judgment: judgment good Discharge Plan Discharge Plan Patient Disposition: Home Provider Discharge Comment: Please review the written instructions you received when you were discharged from the hospital. Your follow-up appointment will be 1 week after your and I look forward to seeing you then. If however in the meanwhile, you have any issues, concerns, or questions, please contact me either through the office phone at [phone], or via the patient portal. It is most important that you continue with iron supplements in addition to your vitamin each day. You should also increase the amount of iron rich foods in your diet for at least the next 30 days. Discharge orders & Medications Prescriptions: New ibuprofen 600 mg tablet 600 mg PO Q6H PRN (Reason: fever or pain) Qty: 30 2RF oxycodone 5 mg tablet 5 mg PO Q6H PRN (Reason: pain) Qty: 20 0RF Continued sumatriptan succinate [Imitrex] 50 mg tablet See Rx Instructions PO .COMPLEX Qty: 20 3RF Rx Instructions: take 1 tab at onset of headache; if no relief may repeat 1 tab after at least 2 hrs; max = 4 tabs/24 hr PO PNV [id number] no.10 20 mg iron- 1 mg tablet 1 tab PO DAILY Qty: 90 3RF Discontinued oxycodone 5 mg tablet 5 mg PO Q6H PRN (Reason: pain) Qty: 20 0RF Follow up/Referrals: Low Calvo ARNP [Primary Care Provider] - Vishal William MD [Physician] - Discharge Health Status Multidrug resistant organism: No MDRO Diet/Activity/Treatments Diet: Diet as Tolerated Activity: As tolerated Other treatments: [id number] Tylenol may be used for additional pain relief. Zezl-nji-ppydkin stool softeners and/or MiraLax may be used as needed for constipation. Skin/Wound/Dressing Care Report to your healthcare provider any signs of infection, such as:: chills, fever, increased pain, unusual drainage and unusual redness Dressing: Dressing will be removed at the time of your one-week postop visit Visit Report/Discharge Packet Instructions: DI for , DI for and Nipple Soreness, DI for Prescription Opioid Use Discharge Data Primary Care Provider: Low Calvo
[2023-06-18 18:07] VITALS: BP 109/64; PULSE 83; RESP 16; TEMP 37.2
== END 2023-06-18 17:39 | disposition home or self-care (01) | DRG 787 ==
PROVIDERS: Admitting Provider Obstetrics & Gynecology; PCP Nurse Practitioner Family; Referring Provider Obstetrics & Gynecology; Visit Provider Obstetrics & Gynecology
PROC: 10D00Z1 Extraction of Products of Conception, Low, Open Approach (ICD-10-PCS; CPT 59514; principal; 2023-06-16 09:15)
DX: O44.03 Complete placenta previa NOS or without hemorrhage, third trimester (principal); D62 Acute posthemorrhagic anemia; O99.03 Anemia complicating the puerperium; O34.13 Maternal care for benign tumor of corpus uteri, third trimester; D25.9 Leiomyoma of uterus, unspecified; O32.8XX0 Maternal care for other malpresentation of fetus, not applicable or unspecified; Z3A.38 38 weeks gestation of pregnancy; Z37.0 Single live birth
CPT/HCPCS: 36415; 59050; 59510; 59514; 85014; 85018; 85025; 86850; 86900; 86901; J0131; J0690; J1100; J1756; J1885; J2270; J2274; J2405; J3010; S0191